=== PATIENT | female | born 1980 | race African-American/Black ===

== ENCOUNTER 2018-03-14 18:25 | Emergency (ER) | payer OTHER ==
[~2018-03-14] VITALS: Ht 157.5 cm; Wt 81.7 kg
[~2018-03-14 18:25] MED LIST: CIPROFLOXACIN500 M1 PO; KEFLEX500 MG PO; NORCO 5-325 TA1 EACH PO; PHENTERMINE H37.5 MG PO; QVAR HFA 880 MCG/UN1 INH; UNICOMPLEX M TA1 TA1 PO; VENTOLIN HFA 1818 GM INH; ZOFRAN ODT4 MG PO
[2018-03-14] MEDS ORDERED: PROMETHAZINE/C118 ML PO (21:04)
[2018-03-14] MEDS ORDERED: PROVENTIL HFA6.7 G1 INH (21:04)
[2018-03-14 21:35] VITALS: BP 132/74
== END 2018-03-14 21:36 | disposition home or self-care (01) ==
LOC: ER 18:25
DX: J40 Bronchitis, not specified as acute or chronic (principal); R51 Headache; R63.0 Anorexia; H92.03 Otalgia, bilateral; J02.9 Acute pharyngitis, unspecified; R42 Dizziness and giddiness; Z88.8 Allergy status to other drugs, medicaments and biological substances